=== PATIENT | male | born 1950 | race Caucasian/White ===

== ENCOUNTER 2016-06-30 05:04 | Day surgery (SDC) | payer BC ==
--- NOTE | ~2016-06-30 | EGD ---
EGD REPORT [facility] [address] [address] NAME: ALEJANDRO SINCLAIR : [birth year] STATUS : REG [facility]#: [id number] AGE: 66 ADM/REG DATE : 06/30/16 MR#: [id number] REPORT SERV DATE: 06/30/16 DICTATED BY: PIERRE ZHENG DATE: 06/30/16 REPORT STATUS : Draft TRANSCRIBED BY: [employer] DATE: 06/30/16 THIS EXAM WAS SENT IN ERROR
--- NOTE | ~2016-06-30 | EGD ---
EGD REPORT [facility] [address] [address] NAME: DUNCAN MONTIEL : [birth year] STATUS : REG [facility]#: [id number] AGE: 66 ADM/REG DATE : 06/30/16 MR#: [id number] REPORT SERV DATE: 06/30/16 DICTATED BY: PIERRE ZHENG DATE: 06/30/16 REPORT STATUS : Draft TRANSCRIBED BY: [employer] DATE: 06/30/16 Endoscopy Center Patient Name: Duncan Montiel Date of : 1950 Attending MD: PIERRE ZHENG MD Procedure Date No Time: 06/30/2016 Procedure: Colonoscopy Indications: High risk colon cancer surveillance: Personal history of colonic polyps Referring MD: MARY OLVERA MD Medicines: Monitored Anesthesia Care Complications: No immediate complications. Procedure: Pre-Anesthesia Assessment: - ASA Grade Assessment: IV - A patient with severe systemic disease that is a constant threat to life. After I obtained informed consent, the scope was passed under direct vision. Throughout the procedure, the patient's blood pressure, pulse, and oxygen saturations were monitored continuously. The CF [id number] was introduced through the anus and advanced to the cecum, identified by appendiceal orifice and ileocecal valve. The colonoscopy was performed with moderate difficulty due to significant looping. Successful completion of the procedure was aided by applying abdominal pressure. The patient tolerated the procedure well. The quality of the bowel preparation was good. Findings: The digital rectal exam was normal. Pertinent negatives include no palpable rectal lesions. Multiple diverticula were found in the sigmoid colon and in the descending colon. Hemorrhoids were found during retroflexion and were mild. Two sessile polyps were found in the ascending colon. The polyps were 4 to 6 mm in size. These polyps were removed with a cold biopsy forceps. Resection and retrieval were complete. A sessile polyp was found in the ascending colon. The polyp was 10 mm in size. The polyp was removed with a cold snare. Resection and retrieval were complete. Two sessile polyps were found in the sigmoid colon. The polyps were 3 to 5 mm in size. These polyps were removed with a cold biopsy forceps. Resection and retrieval were complete. A single large angioectasia without bleeding was found in the proximal ascending colon. EGD REPORT [place] [id number] [facility] [place]. [address] NAME: DUNCAN MONTIEL : [birth year] [place]US : [place] [facility] [place] [place]#: [id number] AGE: 66 ADM/REG DATE : 06/30/16 MR#: [id number] REPORT SERV DATE: 06/30/16 DICTATED BY: PIERRE ZHENG DATE: 06/30/16 REPORT STATUS : Draft TRANSCRIBED BY: [employer] DATE: 06/30/16 Impression: - Diverticulosis in the sigmoid colon and in the descending colon. - Hemorrhoids. - Two 4 to 6 mm polyps in the ascending colon. Resected and retrieved. - One 10 mm polyp in the ascending colon. Resected and retrieved. - Two 3 to 5 mm polyps in the sigmoid colon. Resected and retrieved. Recommendation: - Patient has a contact number available for emergencies. The signs and symptoms of potential delayed complications were discussed with the patient. Return to normal activities tomorrow. Written discharge instructions were provided to the patient. - Regular diet. - Continue present medications. - Await pathology results. - Repeat colonoscopy in 3 - 5 years for surveillance based on pathology results. - Return to GI clinic PRN. Procedure Code(s): --- Professional --- 21829, Colonoscopy, flexible, proximal to splenic flexure; with removal of tumor(s), polyp(s), or other lesion(s) by snare technique 85143, 59, Colonoscopy, flexible, proximal to splenic flexure; with biopsy, single or multiple Diagnosis Code(s): --- Professional --- K64.9, Unspecified hemorrhoids K57.30, Diverticulosis of large intestine without perforation or abscess without bleeding D12.5, Benign neoplasm of sigmoid colon D12.2, Benign neoplasm of ascending colon Z86.010, Personal history of colonic polyps CPT copyright 2013 [employer]. All rights reserved. The codes documented in this report are preliminary and upon rehabilitation manager review may be revised to meet current compliance requirements. PIERRE ZHENG MD 06/30/2016 7:37 AM This report has been signed electronically. EGD REPORT [facility] [address] [address] NAME: DUNCAN MONTIEL : [birth year] [place]US : [place] [facility] [place]#: [id number] AGE: 66 ADM/REG DATE : 06/30/16 MR#: [id number] REPORT SERV DATE: 06/30/16 DICTATED BY: PIERRE ZHENG DATE: 06/30/16 REPORT STATUS : Draft TRANSCRIBED BY: [employer] DATE: 06/30/16 Number of Addenda: 0 Note Initiated On: 06/30/2016 6:54 AM Scope Withdrawal Time 0 hours 16 minutes 28 seconds [address] [id number]
--- NOTE | ~2016-06-30 | EGD ---
EGD REPORT [facility] [address] [address] NAME: ALEJANDRO MONTIEL : [birth year] STATUS : REG [facility]#: [id number] AGE: 66 ADM/REG DATE : 06/30/16 MR#: [id number] REPORT SERV DATE: 06/30/16 DICTATED BY: PIERRE ZHENG DATE: 06/30/16 REPORT STATUS : Draft TRANSCRIBED BY: [employer] DATE: 06/30/16 Endoscopy Center Patient Name: Jose Ramon Montiel Date of : 1950 Attending MD: PIERRE ZHENG MD Procedure Date No Time: 06/30/2016 Procedure: Colonoscopy Indications: High risk colon cancer surveillance: Personal history of colonic polyps Referring MD: MARY OLVERA MD Medicines: Monitored Anesthesia Care Complications: No immediate complications. Procedure: Pre-Anesthesia Assessment: - ASA Grade Assessment: IV - A patient with severe systemic disease that is a constant threat to life. After I obtained informed consent, the scope was passed under direct vision. Throughout the procedure, the patient's blood pressure, pulse, and oxygen saturations were monitored continuously. The CF [id number] was introduced through the anus and advanced to the cecum, identified by appendiceal orifice and ileocecal valve. The colonoscopy was performed with moderate difficulty due to significant looping. Successful completion of the procedure was aided by applying abdominal pressure. The patient tolerated the procedure well. The quality of the bowel preparation was good. Findings: The digital rectal exam was normal. Pertinent negatives include no palpable rectal lesions. Multiple diverticula were found in the sigmoid colon and in the descending colon. Hemorrhoids were found during retroflexion and were mild. Two sessile polyps were found in the ascending colon. The polyps were 4 to 6 mm in size. These polyps were removed with a cold biopsy forceps. Resection and retrieval were complete. A sessile polyp was found in the ascending colon. The polyp was 10 mm in size. The polyp was removed with a cold snare. Resection and retrieval were complete. Two sessile polyps were found in the sigmoid colon. The polyps were 3 to 5 mm in size. These polyps were removed with a cold biopsy forceps. Resection and retrieval were complete. A single large angioectasia without bleeding was found in the proximal ascending colon. EGD REPORT [place] [id number] [place]. [address] NAME: ALEJANDRO MONTIEL : [birth year] STATUS : REG [facility] [place] PAT#: [id number] AGE: 66 ADM/REG DATE : 06/30/16 MR#: [id number] REPORT SERV DATE: 06/30/16 DICTATED BY: PIERRE ZHENG DATE: 06/30/16 REPORT STATUS : Draft TRANSCRIBED BY: [employer] DATE: 06/30/16 Impression: - Diverticulosis in the sigmoid colon and in the descending colon. - Hemorrhoids. - Two 4 to 6 mm polyps in the ascending colon. Resected and retrieved. - One 10 mm polyp in the ascending colon. Resected and retrieved. - Two 3 to 5 mm polyps in the sigmoid colon. Resected and retrieved. Recommendation: - Patient has a contact number available for emergencies. The signs and symptoms of potential delayed complications were discussed with the patient. Return to normal activities tomorrow. Written discharge instructions were provided to the patient. - Regular diet. - Continue present medications. - Await pathology results. - Repeat colonoscopy in 3 - 5 years for surveillance based on pathology results. - Return to GI clinic PRN. Procedure Code(s): --- Professional --- 29586, Colonoscopy, flexible, proximal to splenic flexure; with removal of tumor(s), polyp(s), or other lesion(s) by snare technique 39625, 59, Colonoscopy, flexible, proximal to splenic flexure; with biopsy, single or multiple Diagnosis Code(s): --- Professional --- K64.9, Unspecified hemorrhoids K57.30, Diverticulosis of large intestine without perforation or abscess without bleeding D12.5, Benign neoplasm of sigmoid colon D12.2, Benign neoplasm of ascending colon Z86.010, Personal history of colonic polyps CPT copyright 2013 [employer]. All rights reserved. The codes documented in this report are preliminary and upon engine tester review may be revised to meet current compliance requirements. PIERRE ZHENG MD 06/30/2016 7:37 AM This report has been signed electronically. EGD REPORT [facility] [address] [address] NAME: ALEJANDRO MONTIEL : [birth year] STATUS : REG [facility] [place] PAT#: [id number] AGE: 66 ADM/REG DATE : 06/30/16 MR#: [id number] REPORT SERV DATE: 06/30/16 DICTATED BY: PIERRE ZHENG DATE: 06/30/16 REPORT STATUS : Draft TRANSCRIBED BY: [employer] DATE: 06/30/16 Number of Addenda: 0 Note Initiated On: 06/30/2016 6:54 AM Scope Withdrawal Time 0 hours 16 minutes 28 seconds [address] [address]
--- NOTE | ~2016-06-30 | EGD ---
EGD REPORT [facility] [address] [address] NAME: ALEJANDRO MONTIEL : 46 STATUS : REG [facility]#: [id number] AGE: 66 ADM/REG DATE : 06/30/16 MR#: [id number] REPORT SERV DATE: 06/30/16 DICTATED BY: PIERRE ZHENG DATE: 06/30/16 REPORT STATUS : Draft TRANSCRIBED BY: [employer] DATE: 06/30/16 Endoscopy Center Patient Name: Jose Ramon Montiel Date of : 1950 Attending MD: PIERRE ZHENG MD Procedure Date No Time: 06/30/2016 Procedure: Colonoscopy Indications: High risk colon cancer surveillance: Personal history of colonic polyps Referring MD: MARY OLVERA MD Medicines: Monitored Anesthesia Care Complications: No immediate complications. Procedure: Pre-Anesthesia Assessment: - ASA Grade Assessment: IV - A patient with severe systemic disease that is a constant threat to life. After I obtained informed consent, the scope was passed under direct vision. Throughout the procedure, the patient's blood pressure, pulse, and oxygen saturations were monitored continuously. The CF [id number] was introduced through the anus and advanced to the cecum, identified by appendiceal orifice and ileocecal valve. The colonoscopy was performed with moderate difficulty due to significant looping. Successful completion of the procedure was aided by applying abdominal pressure. The patient tolerated the procedure well. The quality of the bowel preparation was good. Findings: The digital rectal exam was normal. Pertinent negatives include no palpable rectal lesions. Multiple diverticula were found in the sigmoid colon and in the descending colon. Hemorrhoids were found during retroflexion and were mild. Two sessile polyps were found in the ascending colon. The polyps were 4 to 6 mm in size. These polyps were removed with a cold biopsy forceps. Resection and retrieval were complete. A sessile polyp was found in the ascending colon. The polyp was 10 mm in size. The polyp was removed with a cold snare. Resection and retrieval were complete. Two sessile polyps were found in the sigmoid colon. The polyps were 3 to 5 mm in size. These polyps were removed with a cold biopsy forceps. Resection and retrieval were complete. A single large angioectasia without bleeding was found in the proximal ascending colon. EGD REPORT [place] [id number] [facility] [place]. [address] NAME: ALEJANDRO MONTIEL : 46 STATUS : REG [facility] [place] [place] PAT#: [id number] AGE: 66 ADM/REG DATE : 06/30/16 MR#: [id number] REPORT SERV DATE: 06/30/16 DICTATED BY: PIERRE ZHENG DATE: 06/30/16 REPORT STATUS : Draft TRANSCRIBED BY: [employer] DATE: 06/30/16 Impression: - Diverticulosis in the sigmoid colon and in the descending colon. - Hemorrhoids. - Two 4 to 6 mm polyps in the ascending colon. Resected and retrieved. - One 10 mm polyp in the ascending colon. Resected and retrieved. - Two 3 to 5 mm polyps in the sigmoid colon. Resected and retrieved. Recommendation: - Patient has a contact number available for emergencies. The signs and symptoms of potential delayed complications were discussed with the patient. Return to normal activities tomorrow. Written discharge instructions were provided to the patient. - Regular diet. - Continue present medications. - Await pathology results. - Repeat colonoscopy in 3 - 5 years for surveillance based on pathology results. - Return to GI clinic PRN. Procedure Code(s): --- Professional --- 00707, Colonoscopy, flexible, proximal to splenic flexure; with removal of tumor(s), polyp(s), or other lesion(s) by snare technique 11755, 59, Colonoscopy, flexible, proximal to splenic flexure; with biopsy, single or multiple Diagnosis Code(s): --- Professional --- K64.9, Unspecified hemorrhoids K57.30, Diverticulosis of large intestine without perforation or abscess without bleeding D12.5, Benign neoplasm of sigmoid colon D12.2, Benign neoplasm of ascending colon Z86.010, Personal history of colonic polyps CPT copyright 2013 [employer]. All rights reserved. The codes documented in this report are preliminary and upon solution specialist review may be revised to meet current compliance requirements. PIERRE ZHENG MD 06/30/2016 7:37 AM This report has been signed electronically. EGD REPORT [facility] [address] [address] NAME: ALEJANDRO MONTIEL : 46 STATUS : REG [facility] [place] [place] PAT#: [id number] AGE: 66 ADM/REG DATE : 06/30/16 MR#: [id number] REPORT SERV DATE: 06/30/16 DICTATED BY: PIERRE ZHENG DATE: 06/30/16 REPORT STATUS : Draft TRANSCRIBED BY: [employer] DATE: 06/30/16 Number of Addenda: 0 Note Initiated On: 06/30/2016 6:54 AM Scope Withdrawal Time 0 hours 16 minutes 28 seconds [address] [address]
[~2016-06-30 05:04] MED LIST: ALBUTEROL0.083 % INH; AMARYL1 MG PO; ASAB PO; ASTEPRO0.15 % NAS; FLOVENT DISK50 MCG INH; GLUCOPHAGE1000 MG PO; IPRA17AE INH; KLONO1 PO; KLONO2 PO; LEVAQUIN750 MG PO; LOTENSIN HCT1 TA2 PO; P20 PO; PAX20 PO; PRAVACHOL40 MG PO; PRILO PO; SEREVDISC INH; SPIRIVA INH; VENTOLIN HFA INH; WELLSR150 PO; ZYRTEC ALLGY10 MG PO
== END 2016-06-30 23:59 | disposition home health service (06) ==
LOC: DMU 05:04
PROVIDERS: Internal Medicine Gastroenterology
PROC: 0DBN8ZX Excision of Sigmoid Colon, Via Natural or Artificial Opening Endoscopic, Diagnostic (ICD-10-PCS; 2016-06-30)
PROC: 0DBK8ZZ Excision of Ascending Colon, Via Natural or Artificial Opening Endoscopic (ICD-10-PCS; 2016-06-30)
PROC: 0DBK8ZX Excision of Ascending Colon, Via Natural or Artificial Opening Endoscopic, Diagnostic (ICD-10-PCS; principal; 2016-06-30 07:00)
DX: Z12.11 Encounter for screening for malignant neoplasm of colon (principal); D12.2 Benign neoplasm of ascending colon; K64.9 Unspecified hemorrhoids; K63.5 Polyp of colon; K57.30 Diverticulosis of large intestine without perforation or abscess without bleeding; I10 Essential (primary) hypertension; E78.00 Pure hypercholesterolemia, unspecified; E78.5 Hyperlipidemia, unspecified; J44.9 Chronic obstructive pulmonary disease, unspecified; E11.9 Type 2 diabetes mellitus without complications; G47.33 Obstructive sleep apnea (adult) (pediatric); F41.9 Anxiety disorder, unspecified; Z99.81 Dependence on supplemental oxygen; Z86.010 Personal history of colon polyps; Z88.5 Allergy status to narcotic agent; Z87.891 Personal history of nicotine dependence; Z90.49 Acquired absence of other specified parts of digestive tract; Z98.890 Other specified postprocedural states
CPT/HCPCS: 82962; 88305